=== PATIENT | female | born 1965 | race Caucasian/White ===

== ENCOUNTER 2021-08-12 03:13 | Emergency (ER) | payer SELFPAY ==
[2021-08-12] MEDS ORDERED: Boostrix 0.5 ML (Tdap) VIAL ONE (04:02)
== END 2021-08-12 07:25 | disposition home or self-care (01) ==
LOC: MADERS 03:13
DX: S01.01XA Laceration without foreign body of scalp, initial encounter (principal); F10.129 Alcohol abuse with intoxication, unspecified; W19.XXXA Unspecified fall, initial encounter; I10 Essential (primary) hypertension; F17.210 Nicotine dependence, cigarettes, uncomplicated
CPT/HCPCS: 12001; 70450; 72125; 90471; 90715